=== PATIENT | female | born 1960 | race Caucasian/White ===

== ENCOUNTER → 2018-03-13 | Outpatient (CLI) | payer BC ==
[~2018-03-13] MED LIST: CIPRO500 MG PO; FISH OIL300 MG PO; METHOTREXA25 MG/1 M6 PO; PILOCARPINE PO; PLAQUENIL200 MG PO; PROTONIX40 M1 PO; Z.0.AMBIEN10 MG PO; Z.0.BENTYL20 MG PO; Z.0.CLONIDINE HCL0.1 PO; Z.0.FLAGYL500 MG PO; Z.0.LIALDA1.2 GM PO; Z.0.LORAZEPAM2 MG PO; Z.0.PHENERGAN25 M1 PO; Z.0.PREDNISONE10 M1 PO; Z.0.TOPROL XL100 MG PO; [UNRECOGNIZED DRUG - OTHER]; [UNRECOGNIZED DRUG - OTHER] PO; [UNRECOGNIZED DRUG - OTHER] PO; [UNRECOGNIZED DRUG - OTHER] PO; [UNRECOGNIZED DRUG - OTHER] TD
--- NOTE | 2018-03-13 15:14 | Diagnostic Imaging Report ---
#[id number] - MGDXBIL #BILATERAL DIGITAL DIAGNOSTIC MAMMOGRAM WITH CAD: 03/13/2018 Comparison is made to exams dated: 09/28/2016 mammogram and 03/27/2014 mammogram - [facility]. Current study contains 6 films. The tissue of both breasts is heterogeneously dense. This may lower the sensitivity of mammography. Current study was also evaluated with a Computer Aided Detection (CAD) system. There are benign calcifications in both breasts. There also are benign lymph nodes in the right breast. There is a left chest wall port now present. No significant masses, calcifications, or other findings are seen in either breast. There has been no significant interval change. IMPRESSION: BENIGN There is no mammographic evidence of malignancy. A 1 year screening mammogram is recommended. The patient will be notified by letter of the results. Pavan Ramos Jr., D.O. cw/:03/13/2018 13:28:41 Proposal Lead Writer: Melissa FREITAS(R)(M), [facility] letter sent: Compared to Prior B9 Mammogram BI-RADS: 2 Benign
--- NOTE | 2018-03-13 15:14 | Diagnostic Imaging Report ---
#[id number] - USBRELIMLT ULTRASOUND OF THE LEFT BREAST : 03/13/2018 Comparison is made to exams dated: 03/13/2018 mammogram and 09/28/2016 mammogram - [facility]. Color flow and real-time ultrasound were performed on the left breast with scanning from 3-6 o'clock in the area of focal pain. -There is a lymph node at 3 o'clock 8 cm from the nipple measuring 6 x 4 x 7 mm. -There are dilated ducts at the 4 o'clock position. -At 6 o'clock 2 cm from the nipple is a hyperechoic lesion likely a lipoma measuring 6 x 4 x 4 mm. -No suspicious appearing hypoechoic nodules or masses. IMPRESSION: BENIGN There is no sonographic evidence of malignancy. A 1 year screening mammogram is recommended. Pavan Ramos Jr., D.O. cw/:03/13/2018 14:32:29 Sap Portal Developer: MIKE PUCKETT, [facility] letter sent: Normal Exam Ultrasound BI-RADS: 2 Benign
== END ==
LOC: MAMMO 09:51
PROVIDERS: ATTEND Internal Medicine
DX: N64.4 Mastodynia (principal)
CPT/HCPCS: 77066

== ENCOUNTER → 2018-07-24 | Outpatient (CLI) | payer BC ==
--- NOTE | 2018-07-24 12:19 | Diagnostic Imaging Report ---
EXAM: CERVICAL SPINE 4 OR 5 VIEWS DATE: 07/24/2018 10:01 AM INDICATION: ^[id number] ^1035 ^NECK PAIN swelling COMPARISON: None FINDINGS: On the lateral view the skull base through inferior endplate C6 visualized. Cervicothoracic alignment is grossly intact on the swimmer's view. No significant osseous foraminal narrowing identified on oblique views. Lung apices are clear. Chest wall port partially visualized. IMPRESSION: No definite acute finding. Signed by: Dr. Ketan Cottrell MD on 07/24/2018 12:16 PM
--- NOTE | 2018-07-25 07:49 | Diagnostic Imaging Report ---
History: Headache Comparison studies: None Technique: Axial images were obtained from the skull base to the vertex. Coronal and sagittal reconstructions obtained from the axial data. Dose modulation, iterative reconstruction, and/or weight based adjustment of the mA/kV was utilized to reduce the radiation dose to as low as reasonably achievable. Findings: Scalp/skull: No abnormalities. No fractures, blastic or lytic lesions. Extra-axial spaces: No masses. No fluid collections. Brain sulci: Appropriate for age. Ventricles: Normal in size and configuration. No hydrocephalus. Parenchyma: No abnormal densities. No masses, hemorrhage, acute or chronic cortical vascular insults. Sellar/suprasellar region: No abnormalities Craniocervical junction: Patent foramen magnum. No Chiari one malformation. IMPRESSION: No abnormalities . Signed by: DR Da Christianson M.D. on 07/25/2018 7:45 AM
== END ==
LOC: CT 09:50
PROVIDERS: ATTEND Internal Medicine
DX: M54.2 Cervicalgia (principal); R51 Headache
CPT/HCPCS: 70450; 72050

== ENCOUNTER → 2018-09-05 | Outpatient (CLI) | payer BC ==
[~2018-09-05] MED LIST changes: +GADOBENATE DIMEGLUMINE 0 ML IV ONE
[2018-09-05 15:27] LABS: BASOPHILS # (AUTO) 0.1 (0.0-0.1); BASOPHILS % 0.5 % (0.0-1.0); EOSINOPHILS # (AUTO) 0.1 (0.0-0.4); EOSINOPHILS % 1.2 % (0.0-6.0); HEMATOCRIT 38.4 % (34.2-44.1); HEMOGLOBIN 12.2 g/dL (12.0-16.0); LYMPHOCYTES # (AUTO) 2.1 (1.0-3.2); LYMPHOCYTES % 22.7 % (18.0-39.1); MEAN CORPUSCULAR HEMOGLOBIN 27.3 pg (28-32); MEAN CORPUSCULAR HGB CONC 31.8 g/dL (31-35); MEAN CORPUSCULAR VOLUME 85.9 fL (81-99); MONOCYTES # (AUTO) 0.7 (0.2-0.8); MONOCYTES % 7.8 % (4.4-11.3); NEUTROPHILS # (AUTO) 6.3 (2.1-6.9); NEUTROPHILS % 67.2 % (38.7-80.0); PLATELET COUNT 303 x10e3/uL (140-360); RED BLOOD COUNT 4.47 x10e6/uL (3.6-5.1); RED CELL DISTRIBUTION WIDTH 12.4 % (11.7-14.4)
[2018-09-05 15:48] LABS: ALBUMIN 4.3 g/dL (3.5-5.0); ALBUMIN/GLOBULIN RATIO 1.1 (0.8-2.0); ANION GAP 16.4 mmol/L (8-16); CALCIUM 9.9 mg/dL (8.4-10.2); CREATININE, SERUM 1.21 mg/dL (0.57-1.11); POTASSIUM 4.4 mmol/L (3.5-5.1)
[2018-09-05 16:08] LABS: FREE T4 (FREE THYROXINE) 0.98 ng/dL (0.9-1.8); THYROID STIMULATING HORMONE 0.262 uIU/mL (0.350-4.940)
== END ==
LOC: MRI 13:02
PROVIDERS: ATTEND Psychiatry & Neurology Neurology
DX: G43.711 Chronic migraine without aura, intractable, with status migrainosus (principal); R41.0 Disorientation, unspecified; R20.8 Other disturbances of skin sensation; D68.51 Activated protein C resistance
CPT/HCPCS: 36415; 80053; 82140; 82607; 83540; 83921; 84439; 84443; 84466; 85025

== ENCOUNTER → 2018-10-16 | Outpatient (CLI) | payer BC ==
[~2018-10-16] MED LIST changes: -GADOBENATE DIMEGLUMINE 0 ML IV ONE; +GLYCOPYRROLATE INJ 1MG/ 5 ML SYR ONE; +LIDOCAINE HCL 2% LOCAL INJ 5 ML SDV VIAL INJ ONE; +PROPOFOL IV EMULSION 10 MG/ML 20 ML VIAL ONE
--- NOTE | 2018-10-16 15:13 | Diagnostic Imaging Report ---
Examination: MRI BRAIN WITHOUT CONTRAST History: Migraines. Headaches. Severe tingling in the face. Dizziness. High blood pressure. Comparison studies: Head CT performed July 24, 2018 Technique: Sagittal T2; axial DWI, FLAIR, GRE or SWI, T1, Coronal FLAIR. Intravenous contrast: None Findings: Scalp: No abnormal signal. No masses. Bone marrow: Normal in signal intensity. Brain volume: Adequate for age. No volume loss. Ventricles: Normal in size and configuration. No hydrocephalus. Extra-axial spaces: No abnormalities. Parenchyma: No abnormal signal intensities. No masses, hemorrhage, acute or chronic vascular insults. Suprasellar and sellar region: No abnormalities. Craniocervical junction: No abnormalities. The foramen magnum is patent. No Chiari malformations. Vessels: Normal flow-voids in the arteries and sinuses. Additional findings:Bilateral slitlike orbital lenses. IMPRESSION: No intracranial abnormalities. Signed by: Dr. Evie Muniz M.D. on 10/16/2018 3:10 PM
== END ==
LOC: MRI 11:23
PROVIDERS: ATTEND Psychiatry & Neurology Neurology
DX: G43.711 Chronic migraine without aura, intractable, with status migrainosus (principal); R41.0 Disorientation, unspecified; R20.8 Other disturbances of skin sensation; D68.51 Activated protein C resistance
CPT/HCPCS: 70551; J2001; J2704; J3490

== ENCOUNTER → 2018-12-04 | Outpatient (CLI) | payer BC ==
[~2018-12-04] MED LIST changes: +FENTANYL CITRATE/PF 100MCG/2 ML INJ ONE; -GLYCOPYRROLATE INJ 1MG/ 5 ML SYR ONE; -LIDOCAINE HCL 2% LOCAL INJ 5 ML SDV VIAL INJ ONE; +MIDAZOLAM HCL 2 MG/2 ML VIAL ONE; +SODIUM CHLORIDE 0.9% 100 ML ONE; +SODIUM CHLORIDE 0.9% 500ML 500 ML ONE
--- NOTE | 2018-12-04 14:17 | Diagnostic Imaging Report ---
MRV HEAD WO HISTORY: Factor V Leiden COMPARISON: MRI of the brain 10/16/2018 TECHNIQUE: Sagittal [id number] MR venogram images were obtained without intravenous contrast. Maximum intensity projection and coronal reformatted images were created. DISCUSSION: Deep: Internal cerebral veins: Patent. Vein of Michele: Patent. Superficial: Superior sagittal sinus: Patent. Straight sinus: Patent. Transverse sinuses: Patent. Jugular bulb: Patent. Proximal internal jugular veins: Patent. IMPRESSION: No intracranial MR venogram abnormalities. Signed by: Dr. Roel Carrillo M.D. on 12/04/2018 2:14 PM
== END ==
LOC: MRI 08:53
PROVIDERS: ATTEND Internal Medicine
DX: I66.9 Occlusion and stenosis of unspecified cerebral artery (principal); G44.52 New daily persistent headache (NDPH); D68.51 Activated protein C resistance
CPT/HCPCS: 70544; J2250; J7040; J7050

== ENCOUNTER → 2019-04-15 | Outpatient (CLI) | payer BC ==
[~2019-04-15] MED LIST changes: -FENTANYL CITRATE/PF 100MCG/2 ML INJ ONE; +IOPAMIDOL 370 MG/ML 200 ML INFUS..BTL INJ ONE; -MIDAZOLAM HCL 2 MG/2 ML VIAL ONE; -PROPOFOL IV EMULSION 10 MG/ML 20 ML VIAL ONE; -SODIUM CHLORIDE 0.9% 100 ML ONE; -SODIUM CHLORIDE 0.9% 500ML 500 ML ONE; +SODIUM CHLORIDE 0.9% 50ML 50 ML ONE
--- NOTE | 2019-04-15 10:40 | Diagnostic Imaging Report ---
EXAM: CT Abdomen and Pelvis WITH intravenous contrast INDICATION: Abdominal pain COMPARISON: CT abdomen pelvis of 04/11/2012 TECHNIQUE: Abdomen and pelvis were scanned utilizing a multidetector helical scanner from the lung base to the pubic symphysis after administration of IV contrast. Coronal and sagittal reformations were obtained. Routine protocol was performed. Scan was performed when during portal venous phase. IV CONTRAST: 70 mL of Isovue 370 ORAL CONTRAST: Water COMPLICATIONS: None RADIATION DOSE: Total DLP: 418.4 mGy*cm Dose modulation, iterative reconstruction, and/or weight based adjustment of the mA/kV was utilized to reduce the radiation dose to as low as reasonably achievable. FINDINGS: LOWER THORAX: Minimal bibasilar dependent subsegmental atelectasis. Calcified left lower lobe granuloma. The heart is not enlarged. No pericardial effusion. HEPATOBILIARY: Severe diffuse hepatic parenchymal hypoattenuation consistent with hepatic steatosis. No focal liver lesions. No biliary ductal dilatation. Status post cholecystectomy. SPLEEN: Scattered tiny calcified granulomas throughout the nonenlarged spleen. PANCREAS: No focal masses or ductal dilatation. ADRENALS: No adrenal nodules. KIDNEYS/URETERS: No hydronephrosis or renal calculi. Approximately 11 mm soft tissue density structure at the anterior right kidney lower pole is too small to adequately characterize on this exam and may represent a hyperdense cyst versus soft tissue mass. PELVIC ORGANS/BLADDER: Status post hysterectomy. PERITONEUM / RETROPERITONEUM: No free air or fluid. LYMPH NODES: No lymphadenopathy. VESSELS: Minimal scattered atherosclerotic calcifications of the nonaneurysmal aorta and major branches. GI TRACT: Status post hemicolectomy with anterior abdominal anastomosis. No abnormal bowel wall thickening. No evidence of obstruction. BONES AND SOFT TISSUES: Incisional hernia at the transverse colon anastomosis with bulge of anastomosed bowel. No acute osseous injury. No suspicious lytic or blastic lesions. IMPRESSION: Severe hepatic steatosis. Right kidney lower pole 11mm soft tissue density structure is indeterminate on this single phase exam and may represent a hyperdense cyst versus soft tissue mass. Attention on short interval follow-up imaging either with renal mass protocol CT or renal ultrasound is recommended. Signed by: Rogelio Villegas MD on 04/15/2019 10:37 AM
== END ==
LOC: CT 08:25
PROVIDERS: ATTEND Internal Medicine
DX: R10.9 Unspecified abdominal pain (principal)
CPT/HCPCS: 74177; Q9967

== ENCOUNTER → 2019-06-10 | Outpatient (CLI) | payer BC ==
[~2019-06-10] MED LIST changes: -IOPAMIDOL 370 MG/ML 200 ML INFUS..BTL INJ ONE; -SODIUM CHLORIDE 0.9% 50ML 50 ML ONE
--- NOTE | 2019-06-10 14:08 | Diagnostic Imaging Report ---
Exam: Bone mineral density study. History: Osteoporosis, screening Comparison: None available. Discussion: Evaluation of the left hip and lumbar spine was performed. The study is technically adequate. The patient's fracture risk is compared to an age-matched control. The patient denies prior surgery/fracture of the spine, hips or forearm. Left hip femoral neck bone mineral density: 0.6 g/cm2, T-score is -2.1, Z-score is -0.8. Left hip total bone mineral density: 0.7 g/cm2, T-score is -1.7, Z-score is -0.8. Lumbar spine total bone mineral density: 1 g/cm2, T-score is -0.2, Z-score is 1.2. Impression: 1. Bone mineralization by WHO Classification is low bone mass/osteopenia, the fracture risk is increased. 2. The FRAX 10-year probability of major osteoporotic fracture is 21% and hip fracture is 3.2%. These probabilities assume the patient is untreated. Signed by: Dr. Enrico Ortega D.O., M.M.M. on 06/10/2019 2:05 PM
--- NOTE | 2019-06-16 09:10 | Diagnostic Imaging Report ---
#[id number] - MGSCRBIL #BILATERAL DIGITAL SCREENING MAMMOGRAM WITH CAD: 06/10/2019 CLINICAL: Routine screening. Comparison is made to exams dated: 03/13/2018 mammogram and 09/28/2016 mammogram - [facility]. The tissue of both breasts is heterogeneously dense. This may lower the sensitivity of mammography. Current study was also evaluated with a Computer Aided Detection (CAD) system. There are benign calcifications in both breasts. There also are benign lymph nodes in the right breast. No significant masses, calcifications, or other findings are seen in either breast. There has been no significant interval change. IMPRESSION: BENIGN There is no mammographic evidence of malignancy. A 1 year screening mammogram is recommended. The patient will be notified by letter of the results. DAVID haney/sarah:06/12/2019 15:43:30 Custom Dressmaker: Melissa LEE)(Shyam), [facility] letter sent: Compared to Prior B9 Mammogram BI-RADS: 2 Benign
== END ==
LOC: DX 10:17
PROVIDERS: ATTEND Internal Medicine
DX: Z12.31 Encounter for screening mammogram for malignant neoplasm of breast (principal); Z13.820 Encounter for screening for osteoporosis
CPT/HCPCS: 77067; 77080

== ENCOUNTER → 2019-09-01 | Outpatient (CLI) | payer BC ==
--- NOTE | 2019-09-05 08:29 | Diagnostic Imaging Report ---
#[id number] - USBRECOMRT ULTRASOUND OF THE RIGHT BREAST : 09/01/2019 Comparison is made to exam dated: 06/10/2019 mammogram - [facility]. Color flow and real-time ultrasound were performed on the right breast. Alexander scale images of the real-time examination were reviewed. IMPRESSION: BENIGN There is no sonographic evidence of malignancy. A 1 year screening mammogram is recommended. DAVID haney/sarah:09/04/2019 11:44:06 Electrical Test Technician: DONG MEEHAN RDGA, [facility] letter sent: Compared to Prior B9 Ultrasound BI-RADS: 2 Benign
--- NOTE | 2019-09-05 08:29 | Diagnostic Imaging Report ---
#[id number] - USBRECOMLT ULTRASOUND OF THE LEFT BREAST : 09/01/2019 Comparison is made to exams dated: 06/10/2019 mammogram and 03/13/2018 ultrasound - [facility]. Color flow and real-time ultrasound were performed on the left breast. Alexander scale images of the real-time examination were reviewed. There is a stable benign round lipoma with a circumscribed margin in the left breast at 7 o'clock in the retroareolar region. This round lipoma is hyperechoic. Color flow imaging demonstrates that there is no vascularity present. IMPRESSION: BENIGN There is no sonographic evidence of malignancy. The stable round lipoma in the left breast is benign. A 1 year screening mammogram is recommended. DAVID haney/sarah:09/04/2019 11:43:11 Edge Trimmer: DONG MEEHAN [facility], [facility] letter sent: Compared to Prior B9 Ultrasound BI-RADS: 2 Benign
== END ==
LOC: US 12:49
PROVIDERS: ATTEND Internal Medicine
DX: R92.2 Inconclusive mammogram (principal)

== ENCOUNTER → 2022-07-18 | Outpatient (CLI) | payer OTHER | LOC: MAMMO 12:32 | PROVIDERS: ATTEND Internal Medicine | DX: Z12.31 Encounter for screening mammogram for malignant neoplasm of breast (principal) | CPT/HCPCS: 77067 ==

== ENCOUNTER → 2024-07-18 | Outpatient (REF) | payer OTHER | LOC: MAMMO 11:47 | PROVIDERS: ATTEND Internal Medicine | DX: Z12.31 Encounter for screening mammogram for malignant neoplasm of breast (principal) | CPT/HCPCS: 77067 ==